=== PATIENT | male | born 1990 | race American Indian/Alaskan Native ===

== ENCOUNTER 2017-11-17 12:50 | Emergency (ER) | payer OTHER ==
[2017-11-17 12:57] VITALS: RESP 18
[2017-11-17] MEDS ORDERED: Lidocaine 5% Patch TD STA (13:34)
[2017-11-17] MEDS ORDERED: Dexamethasone 4 mg/1 ml IM STA (13:34)
[2017-11-17] MEDS ORDERED: Dexamethasone 4 mg/1 ml ONE (13:44)
[2017-11-17] MEDS ORDERED: Lidocaine 5% Patch TD ONE (13:45)
--- NOTE | 2017-11-17 14:25 | C.PDOC ---
History Of Present Illness 27 y/o male presents to the ER for pain in the lower right back. Patient reports that he was lifting up something heavy and felt pain in the right side of his lower back yesterday. Patient reports that the pain is sharp and non- radiating. Patient denies any numbness, weakness, bowel and bladder incontinence , abdominal pain, dysuria, fall, and trauma. Patient reports that he has a history of back pain but he never had his pain checked. Time Seen by Provider: 11/17/17 13:00 Chief Complaint (Nursing): Back Pain History Per: Patient History/Exam Limitations: no limitations Onset/Duration Of Symptoms: Days Current Symptoms Are (Timing): Still Present Quality Of Discomfort: Sharp Severity: Moderate Previous Symptoms: Back Pain Exacerbating Factor(s): Turning, Movement Recent travel outside of the [place]: No Past Medical History Reviewed: Historical Data, Nursing Documentation, Vital Signs Vital Signs: Last Vital Signs Temp 98.4 F 11/17/17 14:38 Pulse 76 11/17/17 14:38 Resp 18 11/17/17 14:38 BP 128/66 11/17/17 14:38 Pulse Ox 99 11/17/17 17:38 - Medical History PMH: No Chronic Diseases Surgical History: No Surg Hx Family History: States: No Known Family Hx - Social History Hx Alcohol Use: No Hx Substance Use: No - Immunization History Hx Tetanus Toxoid Vaccination: No Hx Influenza Vaccination: No Hx Pneumococcal Vaccination: No Review Of Systems Except As Marked, All Systems Reviewed And Found Negative. Gastrointestinal: Negative for: Abdominal Pain Genitourinary: Negative for: Dysuria, Incontinence Musculoskeletal: Positive for: Back Pain (lower right back pain) Neurological: Negative for: Weakness, Numbness Physical Exam - Physical Exam Appears: Non-toxic, No Acute Distress Skin: Normal Color, Warm, No Rash Head: Atraumatic, Normacephalic Eye(s): bilateral: Normal Inspection, PERRL Nose: Normal Oral Mucosa: Moist Neck: Normal ROM, Supple Chest: Symmetrical Cardiovascular: Rhythm Regular, No Friction Rub, No Murmur Respiratory: Normal Breath Sounds, No Accessory Muscle Use Gastrointestinal/Abdominal: Normal Exam, Soft, No Tenderness Back: No Vertebral Tenderness, Paraspinal Tenderness (right sided paralumbar tenderness) Extremity: Normal ROM, No Swelling Neurological/Psych: Oriented x3, Normal Speech, Normal Cognition, Normal Motor, Normal Sensation Gait: Steady ED Course And Treatment O2 Sat by Pulse Oximetry: 99 (RA) Pulse Ox Interpretation: Normal Medical Decision Making Medical Decision Making: Plan: --Toradol 30 mg IM --Decadrone 8 mg IM --X-Ray - Lumbar Spine On re-exam, the patient reports improvement of symptoms. Lungs are CTA, heart is RRR, abdomen is soft, non-tender and patient is tolerating PO well. Follow up with the medical doctor within 1-2 days. return if worsened Disposition - Disposition Referrals: [facility] [Outside] Disposition: HOME/ ROUTINE Disposition Time: 14:24 Condition: GOOD Additional Instructions: Follow up with the medical doctor within 1-2 days. return if worsened Prescriptions: Cyclobenzaprine [Cyclobenzaprine HCl] 10 mg PO BID #14 tab Naproxen [Naprosyn] 500 mg PO BID #20 tab predniSONE [Prednisone] 10 mg PO BID #10 tab Instructions: Acute Low Back Pain (ED) Forms: [facility] (Persian), Work Excuse - Clinical Impression Clinical Impression: Low back pain - PA / [employer] / Resident Statement MD/DO has reviewed & agrees with the documentation as recorded. - Scribe Statement The provider has reviewed the documentation as recorded by the Sandoval Lowery Provider Attestation All medical record entries made by the Sandoval were at my direction and personally dictated by me. I have reviewed the chart and agree that the record accurately reflects my personal performance of the history, physical exam, medical decision making, and the department course for this patient. I have also personally directed, reviewed, and agree with the discharge instructions and disposition.
[2017-11-17 14:40] VITALS: BP 128/66; PULSE 76; TEMP 98.4
[2017-11-17 15:07] VITALS: O2SAT 99
--- NOTE | 2017-11-17 17:36 | RAD ---
PROCEDURE: Radiographs of the Lumbar Spine. HISTORY: low back pain COMPARISON: No prior. FINDINGS: BONES: Normal alignment. No listhesis. No fracture. DISC SPACES: Unremarkable. OTHER FINDINGS: Mild constipation. IMPRESSION: No evidence of acute pathology in the lumbar spine.
== END 2017-11-17 14:38 | disposition home or self-care (01) ==
LOC: C.ER 12:50
DX: M54.5 Low back pain (principal)
CPT/HCPCS: 72100; 96372; 99284; J1100; J1885